=== PATIENT | female | born 1975 | race Caucasian/White ===

== ENCOUNTER 2018-04-16 17:56 | Emergency (ER) | payer SELFPAY, MEDICAID ==
[2018-04-16] MEDS: ACETAMINOPHEN 325 MG TAB PO (18:26)
[2018-04-16] MEDS: DIPHTH/TET/ACEL PERTUSS (ADULT) 0.5 ML VIAL IM* (18:27)
== END 2018-04-16 18:43 | disposition home or self-care (01) ==
LOC: FTE 17:56
DX: S91.201A Unspecified open wound of right great toe with damage to nail, initial encounter (principal); X58.XXXA Exposure to other specified factors, initial encounter; Y92.9 Unspecified place or not applicable; Z23 Encounter for immunization
CPT/HCPCS: 90471; 90715; 99283-25